=== PATIENT | female | born 1955 | race Caucasian/White ===

== ENCOUNTER → 2025-01-10 | Outpatient (CLI) | payer MEDICARE, SELFPAY ==
--- NOTE | 2025-01-10 08:02 | BD_ITS ---
EXAM: DEXA examination of lumbar spine and both hips. CLINICAL HISTORY: 69-year-old female. Patient is postmenopausal. She is being treated for osteoporosis. COMPARISON: None TECHNIQUE: DEXA examination of lumbar spine and both hips. FINDINGS: T-SCORES and BMD Lumbar spine: Bone mineral density of the lumbar spine measures (1.240.) g/cm2; T-score measures 1.8. Z-score measures 3.7. Left femoral neck: Bone mineral density of the left femoral neck measures (0.549) g/cm2; T-score measures -2.7. Z-score measures -1.1. Left total hip: Bone mineral density of the total left hip measures (0. 767) g/cm2; T-score measures -1.4. Z-score measures -0.1. Right femoral neck: Bone mineral density of the right femoral neck measures (0.553) g/cm2; T-score measures -2.7. Z-score measures -1.0 Right total hip: Bone mineral density of the total right hip measures (0.733) g/cm2; T-score measures -1.7. Z-score measures -0.4. Fracture Risk Calculation 10 Year Probability of Fracture: Major Osteoporotic Fracture: 22% Hip Fracture: 5.8% BD/Dexa Bone Density Study IMPRESSION: Patient demonstrates osteoporosis of both hips. She demonstrates normal bone m ineral density of the lumbar spine. Reading Location: [id number]
--- NOTE | 2025-01-10 08:30 | BI_ITS ---
EXAM: SCRN MAMM (CAD)W/RYAN BILAT DATE: 01/10/2025 CLINICAL HISTORY: F, Age 69 y/o , POST MENOPASUAL No family history. History of prior left excisional breast biopsy. BREAST CANCER RISK ASSESSMENT: Not assessed. TECHNIQUE: Bilateral screening digital breast tomosynthesis with 2D and 3D images. Computer aided detection. COMPARISON: Prior exam(s) dated comparison is made with prior outside examination dated January 06, 2024.. FINDINGS: TISSUE DENSITY: The breast tissue is heterogenously dense, which may obscure small masses. Bilateral Breast Mammographic Findings: No significant masses, calcifications or other abnormalities are identified. No suspicious masses, areas of developing architectural distortion, or suspicious calcifications. There has been no significant interval change. BI/SCRN MAMM (CAD)W/RYAN BILAT IMPRESSION: Right Breast: BIRADS 1 NEGATIVE. Left Breast: BIRADS 1 NEGATIVE. OVERALL FINAL ASSESSMENT: BIRADS 1 NEGATIVE RECOMMENDATION: Routine annual follow-up in 1 Year A letter with findings and recommendations will be mailed to the patient. Reading Location: [place] [id number]
== END | disposition home or self-care (01) ==
PROVIDERS: PCP Nurse Practitioner Family; Referring Provider Nurse Practitioner Family; Visit Provider Nurse Practitioner Family
DX: Z12.31 Encounter for screening mammogram for malignant neoplasm of breast (principal); Z78.0 Asymptomatic menopausal state; M81.0 Age-related osteoporosis without current pathological fracture
CPT/HCPCS: 77063; 77067; 77080

== ENCOUNTER → 2025-02-03 | Outpatient (CLI) | payer MEDICARE, SELFPAY ==
--- NOTE | 2025-02-03 14:07 | ECHOCS_ITS ---
Reason For Study Reason For Study: ILL DEFINED HEART DISEASE Procedure This was a 2D Doppler, Color Flow transthoracic echocardiogram. The study was technically difficult. The study was technically limited. Limited views were obtained. Contrast injection was performed. Exam performed in department. Technically difficult study with suboptimal images. Left Ventricle Overall LV systolic function appears normal. Estimated LVEF 55 to 60%. Right Ventricle Normal right ventricle. Atria The left and right atria are normal. Mitral Valve Trivial mitral valve insufficiency. Tricuspid Valve Trivial tricuspid valve insufficiency. Normal pulmonary artery pressure. Aortic Valve The aortic valve is not well visualized. Pulmonic Valve The pulmonic valve is not well visualized. Great Vessels The aortic root is not well visualized. Pericardium/Pleural No pericardial effusion. MMode/2D Measurements & Calculations LVAd ap4: 29.2 cm2 LVAd ap2: 16.2 cm2 SV(MOD-sp4): 53.8 ml LVLd ap4: 7.1 cm LVLd ap2: 6.1 cm SI(MOD-sp4): 27.7 ml/m2 EDV(MOD-sp4): 98.3 ml EDV(MOD-sp2): 35.1 ml EDV(sp4-el): 101.4 ml EDV(sp2-el): 36.3 ml LVAs ap4: 17.3 cm2 LVAs ap2: 9.1 cm2 LVLs ap4: 5.9 cm LVLs ap2: 5.5 cm ESV(MOD-sp4): 44.6 ml ESV(MOD-sp2): 12.6 ml ESV(sp4-el): 43.2 ml ESV(sp2-el): 12.8 ml EF(MOD-sp4): 54.7 % EF(MOD-sp2): 64.3 % EF(sp4-el): 57.4 % SV(MOD-sp2): 22.6 ml SV(sp4-el): 58.3 ml SI(MOD-sp2): 11.6 ml/m2 Doppler Measurements & Calculations Ao V2 max: 103.0 cm/sec LV V1 max: 84.2 cm/sec TR max arturo: 220.7 cm/sec Ao max P.2 mmHg LV V1 max P.8 mmHg TR max P.5 mmHg Ao V2 mean: 69.2 cm/sec LV V1 mean P.7 mmHg Ao mean P.2 mmHg LV V1 mean: 62.5 cm/sec Ao V2 VTI: 15.6 cm LV V1 VTI: 16.2 cm AV (velocity ratio): 1.0 ECHO/Echo Complete W/ Contrast Interpretation Summary Technically difficult study with suboptimal images. Overall LV systolic function appears normal. Estimated LVEF 55 to 60%. Ordering Physician: Syd Salinas Referring Physician: Karine Beasley Performed By: Natalie Mccormick, GIRISH, RVT
== END | disposition home or self-care (01) ==
LOC: CVS 14:05
PROVIDERS: PCP Nurse Practitioner Family; Referring Provider Internal Medicine Cardiovascular Disease; Visit Provider Internal Medicine Cardiovascular Disease
DX: I51.89 Other ill-defined heart diseases (principal)
CPT/HCPCS: 93306; Q9957; A4216; C8929